=== PATIENT | female | born 1950 | race Asian ===

== ENCOUNTER 2019-06-10 11:18 | Emergency (ER) | payer OTHER ==
[~2019-06-10] VITALS: Ht 144.8 cm; Wt 51.3 kg
[2019-06-10 11:41] VITALS: BP_SYST 162
--- NOTE | 2019-06-10 16:21 | NUR ---
Patient to ER bed H2 to gown for evaluation. Side rails up.
--- NOTE | 2019-06-10 16:35 | NUR ---
Patient presented to ER C/O flu-like symptoms. Patient A&Ox4, skin pink and warm, afebrile, ambulatory to ER cough present, denies N/V/D, pain 06/27. Patient states sore throat, cough and phlem x5 days. Patien stes she self medicated with OTC medications at home. Patient denies other health HX.
--- NOTE | 2019-06-10 16:36 | NUR ---
ER at bedside examining patient.
[2019-06-10 17:24] LABS: BASOPHILS # (AUTO) 0.1 K/uL (0.0-0.2); BASOPHILS % (AUTO) 0.7 % (0.0-2.0); EOSINOPHILS # (AUTO) 0.1 K/uL (0.0-0.4); EOSINOPHILS % (AUTO) 0.8 % (0.0-4.0); HEMATOCRIT 40.4 % (36-48); HEMOGLOBIN 13.5 g/dL (12.0-16.0); LYMPHOCYTES # (AUTO) 2.7 K/uL (1.0-5.5); LYMPHOCYTES % (AUTO) 31.5 % (20.5-51.5); MEAN CORPUSCULAR HEMOGLOBIN 31 pg (27-31); MEAN CORPUSCULAR HGB CONC 34 % (32-36); MEAN CORPUSCULAR VOLUME 93 fL (79.0-98.0); MONOCYTES # (AUTO) 0.8 K/uL (0.0-1.0); MONOCYTES % (AUTO) 9.2 % (1.7-9.3); NEUTROPHILS % (AUTO) 57.8 % (40.0-70.0); PLATELET COUNT (AUTO) 291 K/uL (130-430); RED BLOOD CELL COUNT(AUTO) 4.35 MIL/uL (4.2-6.2); WHITE BLOOD COUNT (AUTO) 8.6 K/uL (4.8-10.8)
[2019-06-10 17:35] LABS: CALCIUM 9.5 mg/dL (8.4-11.0); CREATININE 0.62 mg/dL (0.55-1.30); POTASSIUM 4.1 mmol/L (3.5-5.1)
[2019-06-10 17:48] LABS: ALBUMIN 3.6 g/dL (3.4-4.8); TOTAL BILIRUBIN 0.5 mg/dL (0.0-1.0)
[2019-06-10 18:31] VITALS: BP_SYST 162
--- NOTE | 2019-06-10 18:31 | NUR ---
Patient given written and verbal discharge instructions and verbalizes understanding. ER MD discussed with patient the results and treatment provided. Patient in stable condition. ID arm band removed. Rx of tesselon, tamiflu given. Patient educated on pain management and to follow up with PMD. Pain Scale0/10 . Opportunity for questions provided and answered.
== END 2019-06-10 18:31 | disposition home or self-care (01) ==
LOC: SED 11:18
DX: R05 Cough (principal); R50.9 Fever, unspecified; H92.01 Otalgia, right ear; J02.9 Acute pharyngitis, unspecified
CPT/HCPCS: 36415; 71046-TC; 80053; 85025; 86710; 99284